=== PATIENT | female | born 1985 | race Caucasian/White ===

== ENCOUNTER 2017-11-01 11:52 | Emergency (ER) | payer MEDICARE, OTHER ==
[2017-11-01] MEDS: DIPHENHYDRAMINE 50 MG CAP PO (13:36)
[2017-11-01] MEDS: FAMOTIDINE 20 MG TAB PO (13:36)
[2017-11-01] MEDS: KETOROLAC 30 MG INJ IM (13:44)
== END 2017-11-01 14:56 | disposition home or self-care (01) ==
LOC: FTE 11:52
DX: R22.0 Localized swelling, mass and lump, head (principal); R06.02 Shortness of breath; R51 Headache; E11.9 Type 2 diabetes mellitus without complications; E03.9 Hypothyroidism, unspecified
CPT/HCPCS: 81025; 96372; 99284-25

== ENCOUNTER 2018-05-29 02:28 | Emergency (ER) | payer MEDICARE, OTHER ==
[2018-05-29] MEDS: LIDOCAINE 2% VISC 15 ML CUP PO (06:05)
[2018-05-29] MEDS: LIDOCAINE 1% (MDV) 20 ML INJ SC (06:05)
[2018-05-29] MEDS: IBUPROFEN 800 MG TAB PO (06:52)
== END 2018-05-29 06:58 | disposition home or self-care (01) ==
LOC: FTE 02:28
DX: T16.2XXA Foreign body in left ear, initial encounter (principal); E11.9 Type 2 diabetes mellitus without complications; E03.9 Hypothyroidism, unspecified; X58.XXXA Exposure to other specified factors, initial encounter; Y92.9 Unspecified place or not applicable
CPT/HCPCS: 69200; 99282-25